=== PATIENT | female | born 1985 | race Native Hawaiian/Other Pacific Islander ===

== ENCOUNTER 2018-12-12 06:23 | Inpatient (IN) | payer OTHER ==
[2018-12-12] VITALS (21 sets, daily range): BP systolic 114–173; BP diastolic 60–120
[~2018-12-12] VITALS: Ht 152.4 cm; Wt 68.0 kg
[2018-12-12] MEDS ORDERED: RHOGAM 300 MCG (1500 IU) INJ (J2790) IM SCH (07:00)
[2018-12-12] MEDS ORDERED: METOCLOPRAMIDE INJ 10MG/2ML VIAL (J2765) IV PRN (07:00)
[2018-12-12] MEDS ORDERED: LIDOCAINE 1% MDV 20ML VIAL INFIL ONE (07:00)
[2018-12-12] MEDS ORDERED: MEASLES,MUMPS,RUBELLA VACCINE INJ (MMR-II) (90707) SC SCH (07:00)
[2018-12-12] MEDS ORDERED: DIBUCAINE 1% OINTMENT 30GM TOP PRN (07:00)
[2018-12-12] MEDS ORDERED: OXYTOCIN INJ 10 UNITS/ML VIAL (J2590) IM ONE (07:00)
[2018-12-12] MEDS ORDERED: ACETAMINOPHEN TAB 650MG DOSE (2X325MG) PO PRN (07:00)
--- NOTE | 2018-12-12 07:04 | DNPDOC ---
[facility] Delivery Note Delivery Note No chart available, precipitous delivery DATE OF DELIVERY: [id number] PREDELIVERY DIAGNOSIS: 39 2/7 weeks' gestation and labor. POST DELIVERY DIAGNOSIS: Delivered. PROCEDURE: Spontaneous vaginal delivery POT RELINER: Dr. Whiting ANESTHESIA: natural ESTIMATED BLOOD LOSS:200 mL. FINDINGS: weight pending, Score 9/ DELIVERY SUMMARY: Delivery done by RN , see her notes, she stated no delay of the vtx or the shoulders. When I entered the room, the baby was on the abd and vigorous. Cord C/C by FOB. Cord blood. Placenta intact, fundus firm, pit give n 10 Units IM. Small 1st degr lac repaired with 3-0 vicryl, good cosmesis/hemostasis. Uncomplicated. Paulino WHITING,SHAMEKA Arango MD December 12, 2018 07:04
[2018-12-12] MEDS ORDERED: METHYLERGONOVINE MALEATE 0.2 MG/ML VIAL (J2210) IM ONE (07:15)
[2018-12-12] MEDS ORDERED: OXYTOCIN 30 UNITS IN 0.9% NaCl 500ML IV BAG (J2590) As Ordered ONE (07:31)
[2018-12-12 07:39] LABS: HEMATOCRIT 40.6 % (36.0-47.0); HEMOGLOBIN 13.6 g/dl (12.0-15.5); MEAN CORPUSCULAR HEMOGLOBIN 28.3 pg (27.0-33.0); MEAN CORPUSCULAR HGB CONC 33.5 g/dl (32.0-36.5); MEAN CORPUSCULAR VOLUME 84.4 fl (80.0-96.0); PLATELET COUNT, AUTOMATED 254 10^3/uL (150-450); RED BLOOD COUNT 4.81 10^6/uL (4.00-5.40); WHITE BLOOD COUNT 11.3 10^3/uL (4.0-10.0)
[2018-12-12] MEDS ORDERED: OXYTOCIN DRIP 30 UNITS in APPROPRIATE DILUENT 1 EA IV SCH (07:45)
[2018-12-12] MEDS ORDERED: miSOPROStol 200 MCG TAB (S0191) PR ONE (07:45)
--- NOTE | 2018-12-12 07:55 | IPNPDOC ---
Text Note Date of Service The patient was seen on 12/12/18. NOTE Notified of barely severe range BP's. Ordered a Pre-E pnl. Will follow this up. Also notified of some significant b/u with fundal massage. Cannot use methergine, placed 800 mcg cytotec OH after a bimanual exam shows firm fundus at U-2 but a large clot at the cx that was evacuated. Also had the nurses place an IV and she is now getting a [address] Ashraf and RAMAN Mitchell both notified of this pt via SBAR of the bleeding and BP's. Sessions A-FIB/EMILIE A-FIB History Current/History of A-Fib/PAF?: No VS,Fishbone, I+O VS, Fishbone, I+O Laboratory Tests 12/12/18 07:22 Red Blood Count 4.81, Mean Corpuscular Volume 84.4, Mean Corpuscular Hemoglobin 28.3, Mean Corpuscular Hemoglobin Concent 33.5, Red Cell Distribution Width 13.4 SESSIONS,SHAMEKA Arango MD December 12, 2018 07:55
--- NOTE | 2018-12-12 07:59 | HPEPDOC ---
Obstetrical History & Physical General Date of Admission December 12, 2018 at 06:23 History of Present Illness 32 y/o at 39+2 came in via POV with painful reg ctx's and had a baby precipitously, see my del note. Chief Complaint: Contractions, term Information Provided By: Patient Care Care: Good Care Dating Final EDC by: LMP, 1st trimester (US) Past Medical History Past Obstetrical History : Type of Delivery: Spontaneous Vaginal Del. (x2 now) [employer]ATOR History: No pertinent history Past Medical History Surgical History: Buford teeth Family History Significant Family History: No pertinent family hx Social History Marital Status: Family situation: Spouse/partner home Psychosocial History: No pertinent psych hx * Smoker: non-smoker Alcohol: Denies Drugs: denies Abuse Violence Screening Have you been hit/kicked/slapp: No Have you been sexually assault: No Imunizations Tdap status: current Influenza Status: current Allergies Coded Allergies: Septra (Verified Allergy, Mild, hives, 12/12/18) Uncoded Allergies: amoxic (Allergy, Mild, hives, 12/12/18) erythrom (Adverse Reaction, Mild, hives, 12/12/18) Physical Examination Physical Examination GENERAL: Alert and oriented times three. BREAST: . ABDOMEN: Gravid and non-tender to touch. EXTREMITIES: No edema. No clonus. Laboratory Data 24H LABS Laboratory Tests 2 12/12/18 07:18: Serology Scanned Report Hepatitis B Testing 12/12/18 07:21: 12/12/18 07:22: Nucleated Red Blood Cells % (auto) 0.0 CBC/BMP Laboratory Tests 12/12/18 07:22 Red Blood Count 4.81, Mean Corpuscular Volume 84.4, Mean Corpuscular Hemoglobin 28.3, Mean Corpuscular Hemoglobin Concent 33.5, Red Cell Distribution Width 13.4 Urine Culture: No Growth Pertinent Laboratoy Data Blood Type: B+ RBC Antibody Screen: Negative HIV: Negative Hepatitis B: Negative Hepatitis C: Unknown Rapid Plasma Reagin: Nonreactive Rubella: Immune Varicella: Immune Chlamydia/Gonorrhea: Negative Group B Streptococcus: Negative Quad Screen Test: Declined Cystic Fibrosis: Negative Assessment/Plan Assessment precip delivery Plan see PP plan and orders SESSIONS,SHAMEKA Arango MD December 12, 2018 07:59
[2018-12-12] MEDS: PRENATAL VITAMINS CHEWABLE TABLET PO SCH (08:09)
[2018-12-12] MEDS: IBUPROFEN 800 MG TAB PO PRN (08:09)
[2018-12-12] MEDS: DOCUSATE SODIUM 100 MG CAP PO SCH ×2 (08:09→21:00)
[2018-12-12 08:14] LABS: ALT/SGPT 18 U/L (12-78); BILIRUBIN,TOTAL 0.2 MG/DL (0.2-1.0); CREATININE FOR GFR 0.64 MG/DL (0.55-1.30); GLOMERULAR FILTRATION RATE > 60.0 (>60); LDH LACTATE DEHYDROGENASE 261 U/L (84-246); URIC ACID 4.3 MG/DL (2.6-6.0)
[2018-12-12 09:52] LABS: CREATININE,RANDOM URINE 27.5 MG/DL; TOTAL PROTEIN,RANDOM URINE 41.9 MG/DL (0.0-12.0)
[2018-12-12] MEDS ORDERED: METHYLERGONOVINE MALEATE 0.2 MG TAB PO SCH (11:15)
[2018-12-12] MEDS ORDERED: PANTOPRAZOLE 20 MG TAB PO ONE (20:00)
[2018-12-12] MEDS ORDERED: ONDANSETRON 4MG/2ML VIAL (J2405) As Ordered ONE (21:53)
[2018-12-12] MEDS ORDERED: ONDANSETRON 4MG/2ML VIAL (J2405) IV SCH (22:00)
[2018-12-12] MEDS ORDERED: ONDANSETRON 4MG/2ML VIAL (J2405) IV PRN (22:10)
[2018-12-12] MEDS: LABETALOL 100 MG TAB PO SCH (22:16)
[2018-12-12 22:19] LABS: HEMATOCRIT 38.8 % (36.0-47.0); HEMOGLOBIN 12.9 g/dl (12.0-15.5); MEAN CORPUSCULAR HEMOGLOBIN 28.7 pg (27.0-33.0); MEAN CORPUSCULAR HGB CONC 33.2 g/dl (32.0-36.5); MEAN CORPUSCULAR VOLUME 86.4 fl (80.0-96.0); RED BLOOD COUNT 4.49 10^6/uL (4.00-5.40); WHITE BLOOD COUNT 22.6 10^3/uL (4.0-10.0)
[2018-12-12 22:35] LABS: PLATELET COUNT, AUTOMATED 119 10^3/uL (150-450)
[2018-12-12] MEDS ORDERED: MORPHINE 4 MG/ML 1ML VIAL/SYRINGE (J2270) IV PRN (23:00)
[2018-12-12 23:41] LABS: ALBUMIN 2.5 GM/DL (3.2-5.2); ALT/SGPT 419 U/L (12-78); BILIRUBIN,TOTAL 1.1 MG/DL (0.2-1.0); BLOOD UREA NITROGEN 6 MG/DL (7-18); CARBON DIOXIDE LEVEL 23 MEQ/L (21-32); CHLORIDE LEVEL 103 MEQ/L (98-107); CREATININE FOR GFR 0.61 MG/DL (0.55-1.30); GLOMERULAR FILTRATION RATE > 60.0 (>60); GLUCOSE, FASTING 89 MG/DL (70-100); POTASSIUM SERUM 3.7 MEQ/L (3.5-5.1); SODIUM LEVEL 136 MEQ/L (136-145)
[2018-12-13] VITALS (26 sets, daily range): BP systolic 97–132; BP diastolic 57–88
[2018-12-13] MEDS ORDERED: MAG Sulf (L&D) 4 GM/100 ML 4 GM in APPROPRIATE DILUENT 1 EA IV ONE (00:30)
[2018-12-13] MEDS ORDERED: KETOROLAC 30 MG/ML VIAL (J1885) IV ONE (00:30)
--- NOTE | 2018-12-13 00:49 | IPNPDOC ---
Progress Note Date of Service: December 13, 2018 Progress Note Received call from RN that Linda has been having persistent vomiting, severe epigastric pain, and blood pressures in the 160s/100s. She's a 33 yo female with s/p precipitous this AM at ~0715. She had severe range BPs on admission and immediately that ultimately stabilized in the normal to very mildly elevated range. Tox labs were obtained at the time and she ruled in for Pre E based on pr/cr of >1. CMP and CBC were normal. I repeated CBC and CMP this evening and started her on Labetolol. I also gave her zofran for nausea. Repeat labs returned as annotated below. Plts 254 at 0721 on 12Dec2018 ---> 119 on 12Dec2018 at 2252 BMP: 136/3.7--103/23--6/0.61<89 AST/ALT: this AM ---> 661/419 this evening on repeat. Linda now has pre eclampsia with severe features based on significantly elevated LFTs and elevated BPs. She also has downtrending platelets. I went to see Linda to discuss this with her. Will start IV magnesium, 4gm bolus, and then 2gm/hr maintenance for seizure prophylaxis. [place] catheter to be inserted for close eye on urine output. Strict Is/Os and neuro checks for mag toxicity. Likely will be continuing mag for 24 hours. Continue Labetalol for BP control and titrate up as needed. All patient questions answered. Luis Armando Sanchez, DO VS, I&O, 24H, Sajan Vital Signs/I&O Vital Signs Date Time Temp Pulse Resp B/P (MAP) Pulse Ox O2 Delivery O2 Flow Rate FiO2 12/12/18 23:20 16 12/12/18 22:16 88 162/102 12/12/18 22:00 99.1 100 I&O- Last 24 Hours up to 6 AM 12/13/18 06:00 Intake Total 500 ml Output Total 1350 ml Balance -850 ml Laboratory Data 24H LABS Laboratory Tests 2 12/12/18 07:18: Serology Scanned Report Hepatitis B Testing 12/12/18 07:21: Glomerular Filtration Rate > 60.0, Creatinine 0.64, Aspartate Amino Transf (AST/SGOT) 27, Alanine Aminotransferase (ALT/SGPT) 18, Lactate Dehydrogenase 261H, Total Bilirubin 0.2, Uric Acid 4.3 12/12/18 07:22: Nucleated Red Blood Cells % (auto) 0.0 12/12/18 09:04: Urine Random Creatinine 27.5, Urine Random Total Protein 41.9H 12/12/18 18:52: Bedside Glucose (Misc Panel) 102 12/12/18 22:11: Nucleated Red Blood Cells % (auto) 0.0 12/12/18 22:52: Anion Gap 10, Glomerular Filtration Rate > 60.0, Blood Urea Nitrogen 6L, Creat inine 0.61, Sodium Level 136, Potassium Level 3.7, Chloride Level 103, Carbon Dioxide Level 23, Calcium Level 8.0L, Aspartate Amino Transf (AST/SGOT) 661H, Alanine Aminotransferase (ALT/SGPT) 419H, Alkaline Phosphatase 140H, Total Bilirubin 1.1#H, Total Protein 7.0, Albumin 2.5L, Albumin/Globulin Ratio 0.56L CBC/BMP Laboratory Tests 12/12/18 07:21 Aspartate Amino Transf (AST/SGOT) 27, Alanine Aminotransferase (ALT/SGPT) 18, Lactate Dehydrogenase 261 H, Total Bilirubin 0.2, Uric Acid 4.3 12/12/18 07:22 Red Blood Count 4.81, Mean Corpuscular Volume 84.4, Mean Corpuscular Hemoglobin 28.3, Mean Corpuscular Hemoglobin Concent 33.5, Red Cell Distribution Width 13.4 12/12/18 22:11 Red Blood Count 4.49, Mean Corpuscular Volume 86.4, Mean Corpuscular Hemoglobin 28.7, Mean Corpuscular Hemoglobin Concent 33.2, Red Cell Distribution Width 15.6 H 12/12/18 22:52 Aspartate Amino Transf (AST/SGOT) 661 H, Alanine Aminotransferase (ALT/SGPT) 419 H, Total Bilirubin 1.1 #H, Calcium Level 8.0 L, Alkaline Phosphatase 140 H, Total Protein 7.0, Albumin 2.5 L LUIS ARMANDO SANCHEZ DO December 13, 2018 00:49
[2018-12-13] MEDS: MAG Sulf (OBGYN) 20GM/500ML 20,000 MG in APPROPRIATE DILUENT 1 EA IV SCH ×3 (01:49→20:12)
[2018-12-13] MEDS: LR 1,000 ML IV SCH ×2 (01:50→14:16)
--- NOTE | 2018-12-13 07:10 | IPNPDOC ---
Progress Note Date of Service: December 13, 2018 Progress Note Linda is a 33 yo who is PPD#1 s/p precipitous yesterday morning and then diagnosed with pre eclampsia with severe features late last night who is currently recovering on the unit and receiving IV magnesium for seizure prophylaxis. This morning she reports feeling "a lot better." She denies headaches. Epigastric pain has significantly improved. She denies any SOB. She has minimal lochia. is in the NICU. She is tolerating a regular diet. Vitals - BP normal to borderline hypotensive since starting magnesium. Afebrile, HR normal. General - Laying in bed, pleasant and conversant, NAD Abdomen - Fundus firm at U-2, no fundal tenderness Extremities - Trace edema in lower extremities. Neuro - Somewhat sluggish patellar reflexes Urine output - Excellent, >100ml/hr all night via somers catheter Labs: No new labs from yesterday evening. Linda is doing well this AM. No signs/symptoms of mag toxicity. BP stable. Will hold ordered labetalol if hypotension remains. Will repeat tox labs at 1200 today. Continue magnesium for 24 hours. All patient questions answered. Luis Armando sanchez, DO VS, I&O, 24H, Sajan Vital Signs/I&O Vital Signs Date Time Temp Pulse Resp B/P (MAP) Pulse Ox O2 Delivery O2 Flow Rate FiO2 12/13/18 06:25 72 20 102/64 (77) 97 Room Air 12/13/18 05:25 97.9 I&O- Last 24 Hours up to 6 AM 12/13/18 06:00 Intake Total 500 ml Output Total 2240 ml Balance -1740 ml Laboratory Data 24H LABS Laboratory Tests 2 12/12/18 07:18: Serology Scanned Report Hepatitis B Testing 12/12/18 07:21: Glomerular Filtration Rate > 60.0, Creatinine 0.64, Aspartate Amino Transf (AST/SGOT) 27, Alanine Aminotransferase (ALT/SGPT) 18, Lactate Dehydrogenase 261H, Total Bilirubin 0.2, Uric Acid 4.3 12/12/18 07:22: Nucleated Red Blood Cells % (auto) 0.0 12/12/18 09:04: Urine Random Creatinine 27.5, Urine Random Total Protein 41.9H 12/12/18 18:52: Bedside Glucose (Misc Panel) 102 12/12/18 22:11: Nucleated Red Blood Cells % (auto) 0.0 12/12/18 22:52: Anion Gap 10, Glomerular Filtration Rate > 60.0, Blood Urea Nitrogen 6L, Creatinine 0.61, Sodium Level 136, Potassium Level 3.7, Chloride Level 103, Carbon Dioxide Level 23, Calcium Level 8.0L, Aspartate Amino Transf (AST/SGOT) 661H, Alanine Aminotransferase (ALT/SGPT) 419H, Alkaline Phosphatase 140H, Total Bilirubin 1.1#H, Total Protein 7.0, Albumin 2.5L, Albumin/Globulin Ratio 0.56L CBC/BMP Laboratory Tests 12/12/18 07:21 Aspartate Amino Transf (AST/SGOT) 27, Alanine Aminotransferase (ALT/SGPT) 18, Lactate Dehydrogenase 261 H, Total Bilirubin 0.2, Uric Acid 4.3 12/12/18 07:22 Red Blood Count 4.81, Mean Corpuscular Volume 84.4, Mean Corpuscular Hemoglobin 28.3, Mean Corpuscular Hemoglobin Concent 33.5, Red Cell Distribution Width 13.4 12/12/18 22:11 Red Blood Count 4.49, Mean Corpuscular Volume 86.4, Mean Corpuscular Hemoglobin 28.7, Mean Corpuscular Hemoglobin Concent 33.2, Red Cell Distribution Width 15.6 H 12/12/18 22:52 Aspartate Amino Transf (AST/SGOT) 661 H, Alanine Aminotransferase (ALT/SGPT) 419 H, Total Bilirubin 1.1 #H, Calcium Level 8.0 L, Alkaline Phosphatase 140 H, Total Protein 7.0, Albumin 2.5 L LUIS ARMANDO SANCHEZ DO December 13, 2018 07:10
[2018-12-13] MEDS: PRENATAL VITAMINS CHEWABLE TABLET PO SCH (08:40)
[2018-12-13] MEDS: DOCUSATE SODIUM 100 MG CAP PO SCH ×2 (08:40→21:30)
[2018-12-13] MEDS: LABETALOL 100 MG TAB PO SCH ×2 (08:41→21:00)
[2018-12-13 12:18] LABS: HEMATOCRIT 33.2 % (36.0-47.0); HEMOGLOBIN 11.5 g/dl (12.0-15.5); MEAN CORPUSCULAR HEMOGLOBIN 29.4 pg (27.0-33.0); MEAN CORPUSCULAR HGB CONC 34.6 g/dl (32.0-36.5); MEAN CORPUSCULAR VOLUME 84.9 fl (80.0-96.0); RED BLOOD COUNT 3.91 10^6/uL (4.00-5.40); WHITE BLOOD COUNT 12.1 10^3/uL (4.0-10.0)
[2018-12-13 12:30] LABS: PLATELET COUNT, AUTOMATED 97 10^3/uL (150-450)
[2018-12-13 13:00] LABS: ALBUMIN 2.3 GM/DL (3.2-5.2); ALT/SGPT 280 U/L (12-78); BILIRUBIN,TOTAL 0.6 MG/DL (0.2-1.0); BLOOD UREA NITROGEN 5 MG/DL (7-18); CALCIUM LEVEL 6.5 MG/DL (8.5-10.1); CARBON DIOXIDE LEVEL 25 MEQ/L (21-32); CHLORIDE LEVEL 103 MEQ/L (98-107); CREATININE FOR GFR 0.45 MG/DL (0.55-1.30); GLOMERULAR FILTRATION RATE > 60.0 (>60); GLUCOSE, FASTING 101 MG/DL (70-100); MAGNESIUM LEVEL 5.9 MG/DL (1.8-2.4); POTASSIUM SERUM 3.7 MEQ/L (3.5-5.1); SODIUM LEVEL 136 MEQ/L (136-145); TOTAL PROTEIN 6.2 GM/DL (6.4-8.2)
[2018-12-13] MEDS: IBUPROFEN 800 MG TAB PO PRN (20:11)
[2018-12-14] VITALS (7 sets, daily range): BP systolic 103–133; BP diastolic 58–92
[2018-12-14 06:31] LABS: HEMATOCRIT 30.9 % (36.0-47.0); HEMOGLOBIN 10.3 g/dl (12.0-15.5); MEAN CORPUSCULAR HEMOGLOBIN 28.1 pg (27.0-33.0); MEAN CORPUSCULAR HGB CONC 33.3 g/dl (32.0-36.5); MEAN CORPUSCULAR VOLUME 84.2 fl (80.0-96.0); PLATELET COUNT, AUTOMATED 110 10^3/uL (150-450); RED BLOOD COUNT 3.67 10^6/uL (4.00-5.40); WHITE BLOOD COUNT 11.7 10^3/uL (4.0-10.0)
[2018-12-14 06:57] LABS: ALT/SGPT 177 U/L (12-78); BILIRUBIN,TOTAL 0.3 MG/DL (0.2-1.0); CREATININE FOR GFR 0.44 MG/DL (0.55-1.30); GLOMERULAR FILTRATION RATE > 60.0 (>60); LDH LACTATE DEHYDROGENASE 570 U/L (84-246); URIC ACID 4.7 MG/DL (2.6-6.0)
--- NOTE | 2018-12-14 09:02 | IPNPDOC ---
Text Note Date of Service The patient was seen on 12/14/18. NOTE Linda is a 33 yo who is PPD#2 s/p precipitous then diagnosed with pre eclampsia with severe features who received 24 hrs mag sulfate that came off at [place] last night. Currently recovering on the unit. This morning she reports feeling "a lot better." She denies headaches. Epigastric pain is gone. She denies any SOB. She has minimal lochia. is in the NICU. She is tolerating a regular diet. Vitals - stable General - Laying in bed, pleasant and conversant, NAD Abdomen - Fundus firm at U-2, no fundal tenderness Extremities - Trace edema in lower extremities. Urine output - normal while on mag sulfate, voiding regularly now Labs: Labs show a normalizing trend except for LDH, nl for this to be the last lab to turn around. Linda is doing well this AM. No signs/symptoms persistent PP Pre-E. BP stable. Keep in the hospital for one more day, mostly for BP and Sx's monitroing. Baby may not be released until MON, can stay on as a boarder another 24 hrs if bed status permits. All patient questions answered. Sessions A-FIB/EMILIE A-FIB History Current/History of A-Fib/PAF?: No VS,Fishbone, I+O VS, Schuylerbone, I+O Laboratory Tests 12/13/18 11:57 Red Blood Count 3.91 L, Mean Corpuscular Volume 84.9, Mean Corpuscular Hemoglobin 29.4, Mean Corpuscular Hemoglobin Concent 34.6, Red Cell Distribution Width 13.8, Calcium Level 6.5 #L, Aspartate Amino Transf (AST/SGOT) 429 H, Alanine Aminotransferase (ALT/SGPT) 280 H, Alkaline Phosphatase 121 H, Total Bilirubin 0.6, Total Protein 6.2 L, Albumin 2.3 L 12/14/18 05:53 Red Blood Count 3.67 L, Mean Corpuscular Volume 84.2, Mean Corpuscular Hemoglob in 28.1, Mean Corpuscular Hemoglobin Concent 33.3, Red Cell Distribution Width 14.3, Aspartate Amino Transf (AST/SGOT) 116 H, Alanine Aminotransferase (ALT/SGPT) 177 H, Total Bilirubin 0.3, Lactate Dehydrogenase 570 H, Uric Acid 4.7 Vital Signs Date Time Temp Pulse Resp B/P (MAP) Pulse Ox O2 Delivery O2 Flow Rate FiO2 12/14/18 06:00 99.3 81 16 104/59 (74) 98 12/13/18 18:31 Room Air I&O- Last 24 Hours up to 6 AM 12/14/18 06:00 Intake Total 1525 ml Output Total 4805 ml Balance -3280 ml SESSIONS,SHAMEKA Arango MD December 14, 2018 09:02
[2018-12-14] MEDS: DOCUSATE SODIUM 100 MG CAP PO SCH ×2 (10:18→21:19)
[2018-12-14] MEDS: PRENATAL VITAMINS CHEWABLE TABLET PO SCH (10:18)
[2018-12-14] MEDS: LABETALOL 100 MG TAB PO SCH ×2 (10:18→21:00)
[2018-12-15] VITALS (7 sets, daily range): BP systolic 105–161; BP diastolic 57–98
--- NOTE | 2018-12-15 07:49 | NUR ---
Progress Note Date of Service The patient was seen on 12/15/18. NOTE Linda is a 33 yo who is PPD#3 s/p precipitous then diagnosed with pre eclampsia with severe features who received 24 hrs mag sulfate. Currently recovering well on the unit. This morning she reports feeling "a lot better." She denies headaches, epigastric pain, n/v, visual changes. She denies any SOB. She has minimal lochia. is in the NICU. She is tolerating a regular diet and urinating w/o difficulty. Vitals - stable General - Laying in bed, pleasant and conversant, NAD Abdomen - Fundus firm at U-2, no fundal tenderness Lochia-scant rubra Extremities - Trace edema in lower extremities. Urine output - normal while on mag sulfate, voiding regularly now Labs: Labs show a normalizing trend reviewed with Dr. Bob yesterday and per his management plan will not repeat today. Linda is doing well this AM. No signs/symptoms persistent PP Pre-E. BP stable. May dc home and/or to boarder status should baby not be released until MON. Extensive review of warning signs and return precautions. Encouraged patient to make close-interval outpatient appt at OBGYN All patient questions answered.
[2018-12-15] MEDS ORDERED: IBUP80TA PO (07:53)
[2018-12-15] MEDS ORDERED: DIBU10OI TOP (07:53)
[2018-12-15] MEDS ORDERED: PRENCHW PO (07:53)
[2018-12-15] MEDS ORDERED: ACET1TAB55 PO (07:53)
[2018-12-15] MEDS: LABETALOL 100 MG TAB PO SCH (09:22)
[2018-12-15] MEDS: DOCUSATE SODIUM 100 MG CAP PO SCH (09:22)
[2018-12-15] MEDS: PRENATAL VITAMINS CHEWABLE TABLET PO SCH (09:22)
== END 2018-12-15 14:30 | disposition home or self-care (01) | DRG 807 ==
LOC: M LDI 06:23 → M OBS 10:22
PROVIDERS: ADMIT Obstetrics & Gynecology; ATTEND Obstetrics & Gynecology
PROC: 10E0XZZ Delivery of Products of Conception, External Approach (ICD-10-PCS; principal; 2018-12-12)
PROC: 0HQ9XZZ Repair Perineum Skin, External Approach (ICD-10-PCS; 2018-12-12)
DX: O62.3 Precipitate labor (principal); Z37.0 Single live birth; Z3A.39 39 weeks gestation of pregnancy; O70.0 First degree perineal laceration during delivery